=== PATIENT | female | born 1985 | race Caucasian/White ===

== ENCOUNTER 2018-02-07 23:10 | Emergency (ER) | payer SELFPAY ==
[~2018-02-07] VITALS: Ht 157.5 cm; Wt 59.0 kg
[2018-02-08] MEDS ORDERED: SODIUM CHLORIDE 0.9% 1,000 ML IV ONE (00:07)
[2018-02-08 01:10] VITALS: BP 125/85
== END 2018-02-08 01:38 | disposition home or self-care (01) ==
LOC: ER 23:10
DX: F41.9 Anxiety disorder, unspecified (principal); M54.40 Lumbago with sciatica, unspecified side
CPT/HCPCS: 81025; 99283; J7030

== ENCOUNTER 2018-09-25 19:48 | Emergency (ER) | payer SELFPAY | END 2018-09-26 01:55 | disposition left against medical advice (07) | LOC: ER 19:48 | DX: R50.9 Fever, unspecified (principal); Z53.21 Procedure and treatment not carried out due to patient leaving prior to being seen by health care provider ==